=== PATIENT | male | born 1985 | race Two or more races ===

== ENCOUNTER 2024-09-20 16:55 | Emergency (ER) | payer MEDICAID, SELFPAY ==
[2024-09-20 17:27] VITALS: BP 135/84; PULSE 90; RESP 18; TEMP 37.1; O2SAT 98
--- NOTE | 2024-09-20 17:29 | XR_ITS ---
Examination: CT brain head without contrast. 2-D sagittal coronal reconstructions Date and time of exam:September 20, 2024 8005 hours Indications: Headaches left-sided facial numbness beginning one week ago CTDI: vol (mGy):55.5 DLP: (mGycm):1182 Technique: Multiple CT axial sections of the brain have been obtained, 5 mm slice thickness. Contrast has not been administered. 2-D sagittal, coronal reconstructions have been obtained Low dose protocols were performed. One or more of the following dose reduction techniques were used; automated exposure control, adjustment of the mA and/or KV according to patient size, use of iterative reconstruction technique. Findings: No significant ventricular enlargement. Intra-axial or extra-axial hemorrhage density is not seen. No mass effect or midline shift Basal cisterns are not remarkable. Fourth ventricle is midline. Cranial vault intact. Impression: Negative for acute hemorrhage, mass effect or midline shift As clinically warranted, brain MRI follow-up would best assess for demyelinating disease, acute ischemic change
--- NOTE | 2024-09-20 17:30 | PD.EDRME ---
Rapid Medical Screening Exam [facility] Arrival date/time: 09/20/24 16:55 39-year-old male with no known medical history presents to the emergency room with a chief complaint of left facial numbness, left-sided blurry vision, and intermittent left arm numbness x 1 week. Patient states the symptoms have progressively gotten worse and patient was sent over by his primary care provider. I have greeted and performed a focused initial assessment of this patient. A comprehensive ED assessment and evaluation of the patient, analysis of all test results, and completion of the medical decision making process will be conducted by additional ED providers. Chief Complaint: Headache Vital signs reviewed by provider: Yes
[2024-09-20 18:06] LABS: Basophils % (Auto) 0 % (0-2.5); Eosinophils # (Auto) 0.7 Thou/mm3 (0.0-0.5); Eosinophils % (Auto) 8 % (0-10); Hematocrit 43.9 % (41.0-53.0); Hemoglobin 15.6 g/dL (13.5-16.0); Immature Granulocytes % (Auto) 0 % (0-0); Immature Granulocytes Auto 0.02 Thou/mm3 (0.00-0.00); Lymphocytes # (Auto) 1.6 Thou/mm3 (1.0-4.8); Lymphocytes % (Auto) 18 % (10-50); Mean Corpuscular HGB Conc 35.5 g/dl (31.0-37.0); Mean Corpuscular Hemoglobin 29.4 pg (25.0-35.0); Mean Corpuscular Volume 83 fL (80-100); Monocytes # (Auto) 0.6 Thou/mm3 (0.0-0.8); Monocytes % (Auto) 7 % (0-12); Neutrophils # (Auto) 5.8 Thou/mm3 (1.8-7.7); Neutrophils % (Auto) 67 % (37-80); Nucleated Red Blood Cell % 0 /100 WBC (0); Platelet Count 189 Thou/mm3 (140-440); White Blood Count 8.7 Thou/mm3 (3.8-10.6)
[2024-09-20 18:20] LABS: Collection Type, Urine Clean Catch; Squamous Epithelial Cell,Urine 0 /hpf (0-5); WBC,Urine 0 /hpf (0-5)
[2024-09-20 18:26] LABS: Partial Thromboplastin Time 28.3 Seconds (22.0-36.0); Prothrombin Time 11.3 Seconds (9.0-12.2)
[2024-09-20 18:28] LABS: Bilirubin,Urine Negative (Negative); Blood,Urine Negative (Negative); Clarity,Urine Clear (Clear/Hazy); Color,Urine Colorless (Lt Yel-Yel); Culture Indicated,Urine Not Indicated; Glucose, Urine 3+ (Negative); Ketones,Urine Negative (Negative); Leukocyte Esterase,Urine Negative (Negative); Nitrite,Urine Negative (Negative); PH,Urine 6.5 (5.0-7.0); Protein,Urine Negative (Neg - Trace); RBC,Urine < 1 /hpf (0-3); Specific Gravity,Urine 1.006 (1.001-1.035); Urobilinogen,Urine Negative mg/dL (0.0-1.0)
[2024-09-20 18:32] LABS: Alanine Aminotransferase 32 U/L (10-49); Albumin, Serum 4.8 gm/dL (3.5-5.0); Albumin/Globulin Ratio 1.9 (1.2-2.2); Alkaline Phosphatase 62 U/L (46-116); Anion Gap 7 (7-16); Aspartate Amino Transferase 30 U/L (0-34); BUN/Creatinine Ratio 20 Ratio (12-20); Bilirubin,Total 1.9 mg/dL (0.3-1.2); Blood Urea Nitrogen 18 mg/dL (9-23); Calcium 10.7 mg/dL (8.3-10.6); Calcium (Corrected) 10.7 mg/dL (8.5-10.1); Carbon Dioxide 27.4 mMol/L (20.0-31.0); Chloride 103 mMol/L (98-107); Creatinine (Component) 0.9 mg/dL (0.6-1.3); Globulin 2.5 gm/dL (2.3-3.5); Glucose 87 mg/dL (74-106); Osmolality,Calculated 274 (275-295); Potassium 3.6 mMol/L (3.4-5.1); Sodium 137 mMol/L (136-145); Total Protein 7.3 gm/dL (5.7-8.2); Troponin I < 0.020 ng/mL (0.0-0.045); eGFR > 60 See Note
[2024-09-20 18:33] LABS: B-Type Natriuretic Peptide < 20 pg/mL (0-100)
[2024-09-20 18:41] LABS: Amphetamine/Methamp Scrn,U Negative (Negative); Barbiturate Screen,Urine Negative (Negative); Benzodiazepines Screen,Urine Negative (Negative); Benzoylecgonine Screen, Ur Negative (Negative); Fentanyl Screen,Urine Negative (Negative); Opiate Screen,Urine Negative (Negative); THC Screen,Urine Negative (Negative)
--- NOTE | 2024-09-20 19:33 | EDNOTE_ITS ---
ED General RME/HPI General Chief complaint: Headache Stated complaint: HEADACHE WITH LEFT SIDE FACIAL NUMBNESS Time Seen by Provider: 09/20/24 18:15 Arrival date/time: 09/20/24 16:55 CC: Left-sided numbness, with a left-sided headache HPI onset of the numbness x 1 week onset of the headache x 1 day. Patient states he took some of his 's pain medication, and now the headache is mostly resolved patient denies any weakness, falls, or dizziness. Patient is awake alert oriented nontoxic- appearing not in any acute distress. RME / HPI RME / HPI narrative: 09/20/24 16:55 39-year-old male with no known medical history presents to the emergency room with a chief complaint of left facial numbness, left-sided blurry vision, and intermittent left arm numbness x 1 week. Patient states the symptoms have progressively gotten worse and patient was sent over by his primary care provider. I have greeted and performed a focused initial assessment of this patient. A comprehensive ED assessment and evaluation of the patient, analysis of all test results, and completion of the medical decision making process will be conducted by additional ED providers. Related Data Previous Rx's ?Medication ?Instructions ?Recorded meloxicam 7.5 mg tablet 7.5 mg PO QDAY #10 tabs 09/20/24 prednisone 20 mg tablet See Taper PO BID 3 days #6 tabs 09/20/24 Allergies Allergy/AdvReac Type Severity Reaction Status Date / Time No Known Allergies Allergy Verified 09/20/24 16:58 Review of Systems Review of Systems Narrative Review of Systems: GEN: No fever, no chills, no weight loss EYES: No discharge, no visual changes, no pain HEENT: No ear pain, no congestion, no sore throat PULM: No shortness of breath, no cough, no congestion CV: No chest pain, no dyspnea on exertion, no palpitations GI: No nausea, no vomiting, no diarrhea, no pain, no constipation : No frequency, no urgency, no dysuria MUSC/SKEL: No joint pain, no back pain SKIN: No rash PSYCH: No hallucinations, no depression HEME/LYMPH: No easy bleeding or bruising tendencies NEURO: No weakness, + headache Past Medical History Social History SMOKING STATUS: Never smoker ED Exam Narrative Physical exam: [General: Not in any acute distress Head normocephalic HEENT: Eyes pupils are PERRLA EOMs are intact nose no rhinorrhea all other subsystems of HEENT within acceptable limits Neck is supple nontender Chest equal chest rise nontender to palpation Respiratory: Clear to auscultation no wheezes crackles or rubs CV: Rate rhythm is regular no murmurs rubs or clicks Abdomen is soft nontender no masses positive bowel sounds all 4 quadrants Back: No CVA tenderness no spinous process tenderness from cervical spine thoracic and lumbar spine Skin: Intact no petechiae rash induration ulceration or crepitus Extremities: Moving all extremity against resistance cap refill less than 2 seconds neurosensory intact Neuro: Awake alert oriented x3 Glascow coma 15 no focal deficits] cranial nerves II through XII are grossly intact Course Quality Measures none Orders Category Date Time Status EKG (ED ONLY) *Do not use* NOW Care 09/20/24 17:[address] head/brain wo con Stat Exams 09/20/24 17:29 Completed EKG (ED Only) Stat Exams 09/20/24 17:29 Ordered BNP [B-Type Natriuretic Peptide] Stat Lab 09/20/24 17:44 Completed CBC Stat Lab 09/20/24 17:44 Completed CMP [Comprehensive Metabolic Panel] Stat Lab 09/20/24 17:44 Completed Drug Screen,Urine Stat Lab 09/20/24 17:59 Completed PT [Prothrombin Time with INR] Stat Lab 09/20/24 17:44 Completed PTT [Partial Thromboplastin Time] Stat Lab 09/20/24 17:44 Completed Troponin I Stat Lab 09/20/24 17:44 Completed UA, C/S IF [Urinalysis, C/S if Indicated] Stat Lab 09/20/24 17:59 Completed Vital Signs Vital signs: Vital Signs Temperature 98.8 F 09/20/24 17:27 Pulse Rate 90 09/20/24 17:27 Respiratory Rate 18 09/20/24 17:27 Blood Pressure 135/84 H 09/20/24 17:27 Pulse Oximetry (%) 98 09/20/24 17:27 Oxygen Delivery Method Room Air 09/20/24 17:27 [facility] Patient data External records reviewed:: [facility] previous records Clinical information provided by:: patient Social determinants that could affect healthcare access:: none Patient has the following chronic illnesses:: None How is presenting disease/condition affected by chronic disease/condition?: u neffected by Evaluation data The following diagnostics were reviewed and interpreted by me:: lab results and radiology exam(s) Lab and/or radiology exams considered but not ordered:: CT of the head and C-spine as interpreted by me read by radiology as negative for any acute finding CMP shows no acute electrolyte imbalances renal impairment transaminitis or T. bili elevation CBC shows no acute leukocytosis anemia thrombocytopenia Coags within acceptable limits Urine is negative for UTI Troponin is negative BNP is negative Interpretation Summary: Patient has no focal deficits, at this time I am not sure if this is somatization will call at paresthesia. Medications Medications considered but not ordered:: None Medication administrations:: None Consultations Consultation(s) initiated? (list below): No Diagnosis Differential Diagnosis ED Complaint MDM: CVA TIA somatization paresthesia Most likely diagnosis given after review of the tests above:: Headache paresthesia Admission Indicated Admission indicated?: not indicated Explain why admission is indicated or not indicated:: Stable for outpatient follow-up Admission Request Was there a request for admission?: No Disposition Plan Disposition Plan: Discharge Discharge Attestation Discharge Attestation: The patient and all family members were given an opportunity to ask questions and understood the discharge instructions. Discharge instructions specifically effects, indications for sooner follow up or return to the emergency department, and the expected course of current diagnosis. Patient condition: Stable Medical Decision Making Differential Diagnosis Differential Diagnosis: CVA TIA somatization paresthesia Lab Data 09/20/24 17:44 09/20/24 17:44 Labs: Lab Results 09/20/24 09/20/24 Range/Units 17:44 17:59 WBC 8.7 (3.8-10.6) Thou/mm3 RBC 5.30 (4.50-5.90) Miln/mm3 Hgb 15.6 (13.5-16.0) g/dL Hct 43.9 (41.0-53.0) % MCV 83 (80-100) fL MCH 29.4 (25.0-35.0) pg MCHC 35.5 (31.0-37.0) g/dl RDW Std Deviation 39.0 (35.1-43.9) fL Plt Count 189 (140-440) Thou/mm3 Neut % (Auto) 67 (37-80) % Lymph % (Auto) 18 (10-50) % [place] % (Auto) 7 (0-12) % Eos % (Auto) 8 (0-10) % Baso % (Auto) 0 (0-2.5) % Neut # (Auto) 5.8 (1.8-7.7) Thou/mm3 Lymph # (Auto) 1.6 (1.0-4.8) Thou/mm3 [place] # (Auto) 0.6 (0.0-0.8) Thou/mm3 Eos # (Auto) 0.7 H (0.0-0.5) Thou/mm3 Baso # (Auto) 0.0 (0.0-0.2) Thou/mm3 Immature Gran # (Auto) 0.02 H (0.00-0.00) Thou/mm3 Absolute Nucleated RBC 0.00 (0.00-0.00) Thou/mm3 Immature Gran % 0 (0-0) % Nucleated RBC % 0 (0) /100 WBC PT 11.3 (9.0-12.2) Seconds INR 1.0 (0.9-1.3) APTT 28.3 (22.0-36.0) Seconds Sodium 137 (136-145) mMol/L Potassium 3.6 (3.4-5.1) mMol/L Chloride 103 (98-107) mMol/L Carbon Dioxide 27.4 (20.0-31.0) mMol/L Anion Gap 7 (7-16) BUN 18 (9-23) mg/dL Creatinine 0.9 (0.6-1.3) mg/dL Estim Creat Clear Calc Not Performed. eGFR > 60 (60 - ) See Note BUN/Creatinine Ratio 20 (12-20) Ratio Glucose 87 (74-106) mg/dL Calculated Osmolality 274 L (275-295) Calcium 10.7 H (8.3-10.6) mg/dL Corrected Calcium 10.7 H (8.5-10.1) mg/dL Total Bilirubin 1.9 H (0.3-1.2) mg/dL AST 30 (0-34) U/L ALT 32 (10-49) U/L Alkaline Phosphatase 62 (46-116) U/L Troponin I < 0.020 (0.0-0.045) ng/mL B-Natriuretic Peptide < 20 (0-100) pg/mL Total Protein 7.3 (5.7-8.2) gm/dL Albumin 4.8 (3.5-5.0) gm/dL Globulin 2.5 (2.3-3.5) gm/dL Albumin/Globulin Ratio 1.9 (1.2-2.2) Ur Collection Type Clean Catch Urine Color Colorless A (Lt Yel-Yel) Urine Clarity Clear (Clear/Hazy) Urine pH 6.5 (5.0-7.0) Ur Specific [place] 1.006 (1.001-1.035) Urine Protein Negative (Neg - Trace) Urine Glucose (UA) 3+ A (Negative) Urine Ketones Negative (Negative) Urine Blood Negative (Negative) Urine Nitrite Negative (Negative) Urine Bilirubin Negative (Negative) Urine Urobilinogen (Auto) Negative (0.0-1.0) mg/dL Ur Leukocyte Esterase Negative (Negative) Urine RBC < 1 (0-3) /hpf Urine WBC 0 (0-5) /hpf Ur Squamous Epith Cells 0 (0-5) /hpf Urine Bacteria None (None) Ur Culture Indicated? Not Indicated Urine Opiates Screen Negative (Negative) Urine Fentanyl Screen Negative (Negative) Ur Barbiturates Screen Negative (Negative) U Amphetamin/Meth Scrn Negative (Negative) U Benzodiazepines Scrn Negative (Negative) U Cocaine Metab Screen Negative (Negative) U Marijuana (THC) Screen Negative (Negative) Discharge Plan Plan Patient Disposition: HOME (Self Care) Patient condition on transfer: Stable Prescriptions/Referrals Prescriptions/Med Rec: New prednisone 20 mg tablet See Taper PO BID 3 Days Qty: 6 0RF Taper: Prednisone Taper 20 mg DAILY for 2 Days and 0 Hour 10 mg DAILY for 2 Days and 0 Hour 5 mg DAILY for 7 Days and 0 Hour meloxicam 7.5 mg tablet 7.5 mg PO QDAY Qty: 10 0RF Referrals: Lloyd Alcala [Primary Care Provider] - In 1 week Problem List Clinical Impression: Headache, Paresthesia Patient/Caregiver Discharge Instructions Education Materials: ED Paraesthesias, Self-Care for Headaches Additional Instructions: Follow-up with your primary care providers of his worsening of symptoms spite of medication you can return the emergency room for reevaluation. Print Language: [place] Stand Alone Forms: [employer] Award Info., Patient Portal Info Letter, Work/School Release PA/ECOLOGICAL MODELER Supervising Physician PA/ECOLOGICAL MODELER Supervising Physician: Roman López ENP
== END 2024-09-20 20:00 | disposition home or self-care (01) ==
PROVIDERS: Nurse Practitioner Family; Emergency Provider Emergency Medicine; PCP Physician Assistant
DX: R51.9 Headache, unspecified (principal); R20.2 Paresthesia of skin
CPT/HCPCS: 36415; 70450; 80053; 80307; 81001; 83880; 84484; 85025; 85610; 85730; 93005; 99284